=== PATIENT | female | born 1960 | race Caucasian/White ===

== ENCOUNTER 2016-10-12 19:16 | Emergency (ER) | payer MEDICARE, OTHER ==
[2016-10-12 19:25] VITALS: TEMP 100.3
[2016-10-12] MEDS ORDERED: NALOXONE 0.4 MG/ML 10 ML VIAL IVP STA (19:25)
[2016-10-12] MEDS ORDERED: NALOXONE 0.4 MG/ML 1 ML VIAL IV STA (19:26)
[2016-10-12] MEDS ORDERED: methylPREDNISolone SOD SUCCI 125 MG/2 ML VIAL IV STA (19:26)
[2016-10-12] MEDS ORDERED: IPRATROPIUM-ALBUTEROL 3 ML NEB INHALATION STA (19:26)
[2016-10-12 19:31] LABS: Glucose,Whole Blood 410 mg/dL (75-99)
[2016-10-12 19:34] LABS: Basophils % (A) 0 %; CH 31.1; CHCM 34.3; Eosinophils # (A) 0.1 k/uL (0-0.7); Eosinophils % (A) 0 %; HCT 39.7 % (34.0-46.0); HDW 3.66; HGB 12.7 gm/dL (11.4-16.0); Luc # (Auto) 0.07; Luc % (Auto) 1; Lymphocytes # (A) 0.5 k/uL (1.0-4.8); Lymphocytes % (A) 3 %; MCH 29.1 pg (25.0-35.0); Mean Platelet Volume 6.5; Monocytes # (A) 0.3 k/uL (0-1.0); Monocytes % (A) 2 %; Neutrophils # (A) 13.2 k/uL (1.3-7.7); Neutrophils % (A) 93 %; Poikilocytosis Slight; RBC 4.36 m/uL (3.80-5.40); RDW 13.3 % (11.5-15.5); WBC 14.2 k/uL (3.8-10.6); WBC (Perox) 13.96
[2016-10-12 19:44] LABS: ALT 44 U/L (9-52); AST 50 U/L (14-36); Alkaline Phosphatase 89 U/L (38-126); Anion Gap 12 mmol/L; Blood Urea Nitrogen 16 mg/dL (7-17); Calcium 8.6 mg/dL (8.4-10.2); Carbon Dioxide 30 mmol/L (22-30); Glucose 405 mg/dL (74-99); Non-African American GFR(MDRD) >60 (>60 ml/min/1.73 sqM); Potassium 5.7 mmol/L (3.5-5.1); Total Bilirubin 0.3 mg/dL (0.2-1.3); Total Protein 6.4 g/dL (6.3-8.2)
[2016-10-12 19:47] LABS: Creatine Kinase <20 U/L (30-135)
[2016-10-12 19:57] LABS: Creatine Kinase MB 1.6 ng/mL (0.0-2.4)
--- NOTE | 2016-10-12 19:58 | XR ---
EXAMINATION TYPE: XR chest 1V portable DATE OF EXAM: 10/12/2016 COMPARISON: NONE HISTORY: Unresponsive TECHNIQUE: Single frontal view of the chest is obtained. FINDINGS: There is almost complete opacification of the left hemithorax. There is pulmonary vascular congestion and pulmonary edema. Heart is probably enlarged. There are chest leads. IMPRESSION: Pulmonary edema. Significant opacification of left hemithorax consistent with pulmonary consolidation and pleural fluid. Cardiomegaly. Calcific tendinitis is noted at the right shoulder joint.
[2016-10-12 20:00] LABS: Chloride 70 mmol/L (98-107); Sodium 112 mmol/L (137-145)
[2016-10-12] MEDS ORDERED: FUROSEMIDE 10 MG/ML 10 ML VIAL IV STA (20:01)
[2016-10-12 20:48] LABS: Partial Thromboplastin Time 24.5 sec (22.0-30.0); Prothrombin Time 10.3 sec (9.0-12.0)
[2016-10-12] MEDS ORDERED: SODIUM CHLORIDE 0.9% 500 ML IV STA (20:49)
[2016-10-12] MEDS ORDERED: SODIUM CHLORIDE 0.9% 1,000 ML IV STA (20:50)
[2016-10-12] MEDS ORDERED: MORPHINE SULFATE 4 MG/ML SYRINGE IV STA ×2 (20:58→21:32)
[2016-10-12 21:27] VITALS: RESP 4
--- NOTE | 2016-10-12 21:43 | ED ---
General Adult HPI - General Chief complaint: Shortness of Breath Stated complaint: unresponsive Time Seen by Provider: 10/12/16 19:26 Source: EMS Mode of arrival: EMS Limitations: no limitations - History of Present Illness Initial comments: This 56-year-old white female presents as a priority 1 mental status change. She apparently has a long history of lung and brain cancer which is end-stage at this time. She's had this treated out of [facility]. She is gone through multiple bouts of chemotherapy as well as radiation therapy. The relates that the chemotherapy is no longer working. She is not from this area but apparently the family was going on a camping trip today and it was her last wishes to go on the camping trip with them. Upon getting to the Site, she apparently became unresponsive and apneic. Upon EMS arrival, she was only breathing approximately 6 times per minute. They did give her 2 mg of Narcan and this seemed to improve her symptoms to a slight degree. She still remained obtunded but could answer an occasional question initially upon arrival. EMS relates that they did want her to be transported to the hospital for further treatment per her power of director of student life. This apparently is a change from previous end-of-life requests. Upon arrival to the ER, the power of director of student life however does change her mind in regard to further treatment. They are okay with the initial testing and IV treatment but refuses the computed tomography scan as well as any additional testing. They do not want any artificial respirations or for us to perform CPR. The patient is unable to give any degree of history herself due to her condition and most of history is therefore obtained per and family. - Related Data Home Medications Medication Instructions Recorded Confirmed ALPRAZolam [Xanax] 0.25 - 0.5 mg PO TID PRN 10/12/16 10/12/16 Dexamethasone 6 mg PO DAILY 10/12/16 10/12/16 Gabapentin [Neurontin] 200 mg PO TID 10/12/16 10/12/16 HYDROcodone/APAP 10-325MG [Holcomb 1 tab PO Q4HR PRN 10/12/16 10/12/16 10-325] Magnesium Oxide [Mag-Ox] 250 mg PO BID 10/12/16 10/12/16 Memantine [Namenda] 10 mg PO BID 10/12/16 10/12/16 Multivitamins, Thera [Multivitamin 1 tab PO DAILY 10/12/16 10/12/16 (formulary)] Ondansetron Odt [Zofran Odt] 4 mg PO Q8HR PRN 10/12/16 10/12/16 Prochlorperazine [Compazine] 10 mg PO Q6H PRN 10/12/16 10/12/16 Sennosides [Senokot] 8.6 mg PO DAILY 10/12/16 10/12/16 guaiFENesin 400 mg PO TID 10/12/16 10/12/16 metFORMIN HCL [Glucophage] 850 mg PO TID 10/12/16 10/12/16 traZODone HCL 25 mg PO HS 10/12/16 10/12/16 Allergies Allergy/AdvReac Type Severity Reaction Status Date / Time No Known Allergies Allergy Verified 10/12/16 19:26 Review of Systems ROS Statement: Those systems with pertinent positive or pertinent negative responses have been documented in the HPI. ROS Other: All systems not noted in ROS Statement are negative. Past Medical History Past Medical History: Cancer History of Any Multi-Drug Resistant Organisms: None Reported Additional Past Surgical History / Comment(s): radiation Past Psychological History: Unable to Obtain Smoking Status: Unknown if ever smoked Past Alcohol Use History: Unable to Obtain Past Drug Use History: Unable to Obtain General Exam - General Exam Comments Initial Comments: GENERAL: The patient is well nourished and well hydrated. VITAL SIGNS: Heart rate, blood pressure, respiratory rate reviewed as recorded in nurse's notes. EYES: Pupils are round and reactive. Extraocular movements are intact. No conjunctival / lid redness or swelling. ENT: No external evidence of injury, swelling, or ecchymosis. Airway is patent. Throat is clear. NECK: Nontender. No swelling or evidence of injury. No subcutaneous emphysema. Trachea is midline. No thyroid mass. HEART: Regular rate and rhythm. Good peripheral pulses. LUNGS/CHEST: Occasional rhonchi noted. No ecchymosis, subcutaneous emphysema, or tenderness. ABDOMEN: Abdomen soft without tenderness. No palpable masses or organomegaly. No peritoneal signs. No abdominal wall swelling or ecchymosis. EXTREMITIES: No extremity tenderness. Normal muscle tone and function. No thoracolumbar tenderness. There is moderate lower extremity edema. NEUROLOGIC: Patient appears obtunded but will answer occasional question. SKIN: No abrasions or ecchymosis is noted. No induration or masses noted. PSYCHIATRIC: Alert initially but unresponsive later and ER course. Limitations: no limitations Course Vital Signs 10/12/16 10/12/16 10/12/16 19:18 19:23 19:49 Temperature 100.3 F H Pulse Rate 103 H 106 H 106 H Respiratory 24 10 L Rate Blood Pressure 199/116 147/68 O2 Sat by Pulse 93 L 91 L Oximetry 10/12/16 10/12/16 10/12/16 20:06 20:44 21:10 Temperature Pulse Rate 105 H 105 H 103 H Respiratory 10 L 6 L 6 L Rate Blood Pressure 134/74 133/76 120/76 O2 Sat by Pulse 94 L 90 L 89 L Oximetry 10/12/16 10/12/16 21:26 21:51 Temperature Pulse Rate 98 96 Respiratory 4 L 4 L Rate Blood Pressure 100/56 101/56 O2 Sat by Pulse 84 L 79 L Oximetry Medical Decision Making - Medical Decision Making The patient was seen and examined. All diagnostics were reviewed. The patient was placed on the surveillance monitor and a sinus tachycardia is noted. The EKG shows a sinus tachycardia at a rate of 104. There is no acute ST-T wave changes identified. The patient also had a chest x-ray completed which does show pulmonary edema as well as significant opacification of the left hemithorax consistent with pulmonary consultation and pleural fluid. There also was evidence of cardiomegaly. The patient initially was given 0.4 of Narcan additionally as her mental status does decompensate. She also received 80 of Lasix after the chest x-ray findings. She received a gram of Rocephin as she does have a fever. The laboratory does show marked abnormalities including an elevation of the lactic acid as well as significant electrolyte abnormalities including a severe hyponatremia and severe hypochloremia. She receives some additional fluids. The family does find her CODE STATUS is been no code as previously discussed in the HPI. They understand that her prognosis is dismal and her course does continue to deteriorate. It is felt as though she has end-stage cancer with multiple metabolic abnormalities at this point. She also has significant pulmonary compromise. The family essentially wants her has comfort measures only later on and ER course and she does receive some morphine. They do not want the computed tomography scan of the brain completed. The patient did finally slowed comment to her illness and was pronounced at 10:32 PM on 10/12/2016. It is felt as though the cause of is likely due to her end-stage cancer and subsequent complications. The family is informed. The primary care physician, Dr. Rosenberg, or on-call physician was paged and we're currently awaiting their call back. Case will be discussed with the medical malpractice paralegal. - Lab Data Result diagrams: 10/12/16 19:26 10/12/16 19:26 Lab Results 10/12/16 10/12/16 10/12/16 Range/Units 19:24 19:26 19:26 WBC 14.2 H (3.8-10.6) k/uL RBC 4.36 (3.80-5.40) m/uL Hgb 12.7 (11.4-16.0) gm/dL Hct 39.7 (34.0-46.0) % MCV 91.0 (80.0-100.0) fL MCH 29.1 (25.0-35.0) pg MCHC 32.0 (31.0-37.0) g/dL RDW 13.3 (11.5-15.5) % Plt Count 641 H (150-450) k/uL Neutrophils % 93 % Lymphocytes % 3 % Monocytes % 2 % Eosinophils % 0 % Basophils % 0 % Neutrophils # 13.2 H (1.3-7.7) k/uL Lymphocytes # 0.5 L (1.0-4.8) k/uL Monocytes # 0.3 (0-1.0) k/uL Eosinophils # 0.1 (0-0.7) k/uL Basophils # 0.0 (0-0.2) k/uL Poikilocytosis Slight PT (9.0-12.0) sec INR (<1.2) APTT (22.0-30.0) sec D-Dimer (<0.60) mg/L FEU Sodium (137-145) mmol/L Potassium (3.5-5.1) mmol/L Chloride (98-107) mmol/L Carbon Dioxide (22-30) mmol/L Anion Gap mmol/L BUN (7-17) mg/dL Creatinine (0.52-1.04) mg/dL Est GFR (MDRD) Af Amer (>60 ml/min/1.73 sqM) Est GFR (MDRD) Non-Af (>60 ml/min/1.73 sqM) Glucose (74-99) mg/dL POC Glucose (mg/dL) 410 H (75-99) mg/dL POC Glu Bulk Cooler Installer ID Ruba Crabtree Plasma Lactic Acid Darrell (0.7-2.0) mmol/L Calcium (8.4-10.2) mg/dL Magnesium (1.6-2.3) mg/dL Total Bilirubin (0.2-1.3) mg/dL AST (14-36) U/L ALT (9-52) U/L Alkaline Phosphatase (38-126) U/L Ammonia (<30) umol/L Total Creatine Kinase <20 L (30-135) U/L CK-MB (CK-2) 1.6 (0.0-2.4) ng/mL CK-MB (CK-2) Rel Index Troponin I (0.000-0.034) ng/mL NT-Pro-B Natriuret Pep pg/mL Total Protein (6.3-8.2) g/dL Albumin (3.5-5.0) g/dL 10/12/16 10/12/16 10/12/16 Range/Units 19:26 19:26 19:26 WBC (3.8-10.6) k/uL RBC (3.80-5.40) m/uL Hgb (11.4-16.0) gm/dL Hct (34.0-46.0) % MCV (80.0-100.0) fL MCH (25.0-35.0) pg MCHC (31.0-37.0) g/dL RDW (11.5-15.5) % Plt Count (150-450) k/uL Neutrophils % % Lymphocytes % % Monocytes % % Eosinophils % % Basophils % % Neutrophils # (1.3-7.7) k/uL Lymphocytes # (1.0-4.8) k/uL Monocytes # (0-1.0) k/uL Eosinophils # (0-0.7) k/uL Basophils # (0-0.2) k/uL Poikilocytosis PT (9.0-12.0) sec INR (<1.2) APTT (22.0-30.0) sec D-Dimer 0.55 (<0.60) mg/L FEU Sodium 112 L* (137-145) mmol/L Potassium 5.7 H (3.5-5.1) mmol/L Chloride 70 L* (98-107) mmol/L Carbon Dioxide 30 (22-30) mmol/L Anion Gap 12 mmol/L BUN 16 (7-17) mg/dL Creatinine 0.50 L (0.52-1.04) mg/dL Est GFR (MDRD) Af Amer >60 (>60 ml/min/1.73 sqM) Est GFR (MDRD) Non-Af >60 (>60 ml/min/1.73 sqM) Glucose 405 H (74-99) mg/dL POC Glucose (mg/dL) (75-99) mg/dL POC Glu Bulk Cooler Installer ID Plasma Lactic Acid Darrell (0.7-2.0) mmol/L Calcium 8.6 (8.4-10.2) mg/dL Magnesium (1.6-2.3) mg/dL Total Bilirubin 0.3 (0.2-1.3) mg/dL AST 50 H (14-36) U/L ALT 44 (9-52) U/L Alkaline Phosphatase 89 (38-126) U/L Ammonia <9 (<30) umol/L Total Creatine Kinase (30-135) U/L CK-MB (CK-2) (0.0-2.4) ng/mL CK-MB (CK-2) Rel Index Troponin I (0.000-0.034) ng/mL NT-Pro-B Natriuret Pep pg/mL Total Protein 6.4 (6.3-8.2) g/dL Albumin 3.6 (3.5-5.0) g/dL 10/12/16 10/12/16 10/12/16 Range/Units 19:26 19:26 19:26 WBC (3.8-10.6) k/uL RBC (3.80-5.40) m/uL Hgb (11.4-16.0) gm/dL Hct (34.0-46.0) % MCV (80.0-100.0) fL MCH (25.0-35.0) pg MCHC (31.0-37.0) g/dL RDW (11.5-15.5) % Plt Count (150-450) k/uL Neutrophils % % Lymphocytes % % Monocytes % % Eosinophils % % Basophils % % Neutrophils # (1.3-7.7) k/uL Lymphocytes # (1.0-4.8) k/uL Monocytes # (0-1.0) k/uL Eosinophils # (0-0.7) k/uL Basophils # (0-0.2) k/uL Poikilocytosis PT 10.3 (9.0-12.0) sec INR 1.0 (<1.2) APTT 24.5 (22.0-30.0) sec D-Dimer (<0.60) mg/L FEU Sodium (137-145) mmol/L Potassium (3.5-5.1) mmol/L Chloride (98-107) mmol/L Carbon Dioxide (22-30) mmol/L Anion Gap mmol/L BUN (7-17) mg/dL Creatinine (0.52-1.04) mg/dL Est GFR (MDRD) Af Amer (>60 ml/min/1.73 sqM) Est GFR (MDRD) Non-Af (>60 ml/min/1.73 sqM) Glucose (74-99) mg/dL POC Glucose (mg/dL) (75-99) mg/dL POC Glu Bulk Cooler Installer ID Plasma Lactic Acid Darrell (0.7-2.0) mmol/L Calcium (8.4-10.2) mg/dL Magnesium (1.6-2.3) mg/dL Total Bilirubin (0.2-1.3) mg/dL AST (14-36) U/L ALT (9-52) U/L Alkaline Phosphatase (38-126) U/L Ammonia (<30) umol/L Total Creatine Kinase (30-135) U/L CK-MB (CK-2) (0.0-2.4) ng/mL CK-MB (CK-2) Rel Index Troponin I <0.012 (0.000-0.034) ng/mL NT-Pro-B Natriuret Pep 1250 pg/mL Total Protein (6.3-8.2) g/dL Albumin (3.5-5.0) g/dL 10/12/16 10/12/16 Range/Units 19:26 19:26 WBC (3.8-10.6) k/uL RBC (3.80-5.40) m/uL Hgb (11.4-16.0) gm/dL Hct (34.0-46.0) % MCV (80.0-100.0) fL MCH (25.0-35.0) pg MCHC (31.0-37.0) g/dL RDW (11.5-15.5) % Plt Count (150-450) k/uL Neutrophils % % Lymphocytes % % Monocytes % % Eosinophils % % Basophils % % Neutrophils # (1.3-7.7) k/uL Lymphocytes # (1.0-4.8) k/uL Monocytes # (0-1.0) k/uL Eosinophils # (0-0.7) k/uL Basophils # (0-0.2) k/uL Poikilocytosis PT (9.0-12.0) sec INR (<1.2) APTT (22.0-30.0) sec D-Dimer (<0.60) mg/L FEU Sodium (137-145) mmol/L Potassium (3.5-5.1) mmol/L Chloride (98-107) mmol/L Carbon Dioxide (22-30) mmol/L Anion Gap mmol/L BUN (7-17) mg/dL Creatinine (0.52-1.04) mg/dL Est GFR (MDRD) Af Amer (>60 ml/min/1.73 sqM) Est GFR (MDRD) Non-Af (>60 ml/min/1.73 sqM) Glucose (74-99) mg/dL POC Glucose (mg/dL) (75-99) mg/dL POC Glu Bulk Cooler Installer ID Plasma Lactic Acid Darrell 5.6 H* (0.7-2.0) mmol/L Calcium (8.4-10.2) mg/dL Magnesium 1.8 (1.6-2.3) mg/dL Total Bilirubin (0.2-1.3) mg/dL AST (14-36) U/L ALT (9-52) U/L Alkaline Phosphatase (38-126) U/L Ammonia (<30) umol/L Total Creatine Kinase (30-135) U/L CK-MB (CK-2) (0.0-2.4) ng/mL CK-MB (CK-2) Rel Index Troponin I (0.000-0.034) ng/mL NT-Pro-B Natriuret Pep pg/mL Total Protein (6.3-8.2) g/dL Albumin (3.5-5.0) g/dL Disposition Clinical Impression: Respiratory failure, Lung cancer, Brain metastases, Mental status change, Fever , Hypochloremia, Hyponatremia, Hyperkalemia, Lactic acidosis, Pulmonary edema, Lung consolidation, Hyperglycemia Disposition: Condition: Poor Time of Disposition: 23:20 Preliminary Cause of : Lung cancer with brain mets
[2016-10-12 21:51] VITALS: BP 101/56; PULSE 96
[2016-10-14 07:26] LABS: Glucose,Whole Blood 410 mg/dL (75-99)
== END 2016-10-13 01:47 | disposition expired ==
LOC: EC 19:16
DX: J96.90 Respiratory failure, unspecified, unspecified whether with hypoxia or hypercapnia (principal); C34.90 Malignant neoplasm of unspecified part of unspecified bronchus or lung; C79.31 Secondary malignant neoplasm of brain; R41.82 Altered mental status, unspecified; E87.8 Other disorders of electrolyte and fluid balance, not elsewhere classified; E87.1 Hypo-osmolality and hyponatremia; E87.5 Hyperkalemia; E87.2 Acidosis; J81.1 Chronic pulmonary edema; R73.9 Hyperglycemia, unspecified; J18.1 Lobar pneumonia, unspecified organism; Z79.51 Long term (current) use of inhaled steroids; Z79.84 Long term (current) use of oral hypoglycemic drugs; Z79.899 Other long term (current) drug therapy; Z53.20 Procedure and treatment not carried out because of patient's decision for unspecified reasons
CPT/HCPCS: 36415; 94640; 93005; 85379; 83880; 80053; 82140; 82550; 82553; 83605; 83735; 84484; 85025; 85610; 85730; 87040; 71010; 99285; 96365; 96366; 96374; 96375 ×3; 96376; 96361 ×2; J2270; J1940; J2310; J2930; J0696